=== PATIENT | female | born 1970 | race Hispanic/Latino ===

== ENCOUNTER 2025-01-01 11:14 | Emergency (ER) | payer MEDICARE ==
[~2025-01-01] VITALS: Ht 157.5 cm; Wt 66.3 kg
[2025-01-01 11:20] VITALS: TEMP 97.9
[2025-01-01] MEDS ORDERED: HYDROCODON-ACE1 EA11 PO (12:11)
[2025-01-01] MEDS ORDERED: VITAMIN B-121000 MC2 PO (12:11)
[2025-01-01] MEDS ORDERED: BIOTIN PLUS 5,1 EACH (12:11)
[2025-01-01] MEDS ORDERED: FEROSUL325 MG PO (12:11)
[2025-01-01] MEDS ORDERED: HYDROXYZINE HCL25 MG PO (12:11)
[2025-01-01] MEDS ORDERED: DULOXETINE HCL30 MG (12:11)
[2025-01-01] MEDS: KETOROLAC TROMETHAMINE 30 MG/ML VIAL IV STA (12:58)
[2025-01-01 15:00] VITALS: PULSE 79; RESP 15; O2SAT 99
== END 2025-01-01 15:24 | disposition home or self-care (01) ==
LOC: FSED 11:19
DX: R07.89 Other chest pain (principal); D64.9 Anemia, unspecified; M32.9 Systemic lupus erythematosus, unspecified; K21.9 Gastro-esophageal reflux disease without esophagitis; F41.9 Anxiety disorder, unspecified; F32.A Depression, unspecified; M79.7 Fibromyalgia; R94.31 Abnormal electrocardiogram [ECG] [EKG]; Z98.84 Bariatric surgery status; Z96.653 Presence of artificial knee joint, bilateral
CPT/HCPCS: 71046; 80053; 81003; 84484; 85025; 93005; 96374; 99284; J1885